=== PATIENT | female | born 1990 | race Caucasian/White ===

== ENCOUNTER → 2017-07-06 08:16 | Outpatient (CLI) | payer MEDICAID, SELFPAY ==
--- NOTE | 2017-07-06 08:17 | XR_ITS ---
XR foot wt bearing RT 3V HISTORY: Right foot pain, old injury ORDERING PHYSICIAN: Alma Benson DPM PATIENT AGE: 26 years COMPARISON: None FINDINGS: No fracture or dislocation. No lytic or blastic change. There is normal mineralization.. The joint spaces are well-preserved. No significant degenerative/arthritic changes. No erosive changes evident. IMPRESSION: Negative, no acute finding
--- NOTE | 2017-07-06 08:17 | XR_ITS ---
XR foot wt bearing LT 3V HISTORY: Foot pain ORDERING PHYSICIAN: Alma Benson DPM PATIENT AGE: 26 years COMPARISON: None FINDINGS: No fracture or dislocation. No lytic or blastic change. There is normal mineralization.. The joint spaces are well-preserved. No significant degenerative/arthritic changes. No erosive changes evident. IMPRESSION: Negative, no acute finding
--- NOTE | 2017-07-06 08:17 | XR_ITS ---
XR ankle wt bearing LT min 3V HISTORY: Pain ORDERING PHYSICIAN: Alma Benson DPM PATIENT AGE: 26 years COMPARISON: None FINDINGS: No fracture or dislocation. No lytic or blastic change. There is normal mineralization.. The joint spaces are well-preserved. No significant degenerative/arthritic changes. No erosive changes evident. IMPRESSION: Negative, no acute finding
--- NOTE | 2017-07-06 08:17 | XR_ITS ---
Right Weightbearing Ankle 3 views. HISTORY: Right ankle pain ORDERING PHYSICIAN: Alma Benson DPM PATIENT AGE: 26 years COMPARISON: None FINDINGS: No fracture or dislocation. No lytic or blastic change. There is normal mineralization.. The joint spaces are well-preserved. No significant degenerative/arthritic changes. No erosive changes evident. IMPRESSION: Negative ankle, no acute finding
== END ==
PROVIDERS: Visit Provider Podiatrist
DX: M21.371 Foot drop, right foot (principal)
CPT/HCPCS: 73610; 73630

== ENCOUNTER → 2017-09-28 13:30 | Outpatient (CLI) | payer MEDICAID, SELFPAY ==
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
== END ==
PROVIDERS: PCP Internal Medicine Adolescent Medicine; Visit Provider Internal Medicine Adolescent Medicine
DX: G89.11 Acute pain due to trauma (principal)
CPT/HCPCS: 72110

== ENCOUNTER 2017-10-27 15:30 | Outpatient (RCR) | payer MEDICAID, SELFPAY ==
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
== END 2017-10-27 15:31 | disposition home or self-care (01) ==
LOC: PT 15:30
PROVIDERS: Family Provider Internal Medicine Adolescent Medicine; PCP Internal Medicine Adolescent Medicine; Visit Provider Internal Medicine Adolescent Medicine
DX: M54.32 Sciatica, left side (principal)
CPT/HCPCS: 97010; 97014; 97033; 97035; 97110; 97140; 97163; G0283

== ENCOUNTER → 2018-01-31 16:13 | Outpatient (CLI) | payer MEDICAID, SELFPAY ==
--- NOTE | 2018-01-31 16:16 | XR_ITS ---
XR chest 2V HISTORY: ITS.REASON: COUGH ORDERING PHYSICIAN: Andres Obrien MD PATIENT AGE: 27 years COMPARISON: 01/29/2012 FINDINGS: The cardiomediastinal silhouette and pulmonary vascularity are within normal limits. The lungs are clear without infiltrates, suspicious nodules, or pleural effusions. Postsurgical changes of the lower thoracic and lumbar spine with a bone plate on the left at T11-T12. The inferior aspect of the bone plate is not visible on the frontal view.. IMPRESSION: No change with no acute finding
== END ==
PROVIDERS: PCP Internal Medicine Adolescent Medicine; Visit Provider Internal Medicine Adolescent Medicine
DX: R05 Cough (principal)
CPT/HCPCS: 71046

== ENCOUNTER 2019-07-26 14:11 | Emergency (ER) | payer OTHER, SELFPAY ==
[2019-07-26 14:20] VITALS: BP 156/78; PULSE 95; RESP 18; TEMP 37.2; O2SAT 96; BMI 28.3
[2019-07-26 14:37] LABS: Hematocrit 37.5 % (37.0-47.0); Mean Corpuscular Volume 91.5 fl (81-99); White Blood Count 11.1 K/mm3 (4.8-10.8)
[2019-07-26 14:38] LABS: Basophils # 0.1 K/mm3 (0-0.2); Basophils % 0.6 % (0.1-2.0); Eosinophils # 0.3 K/mm3 (0.0-0.4); Eosinophils % 2.7 % (0.1-12.0); Lymphocytes # 3.1 K/mm3 (0.7-4.5); Lymphocytes % 27.5 % (10-50); Mean Corpuscular HGB Conc 31.9 g/dL (31.8-35.4); Mean Corpuscular Hemoglobin 29.2 pg (27.0-31.2); Mean Platelet Volume 8.6 fl (7.4-10.4); Monocytes # 0.5 K/mm3 (0.1-1.0); Monocytes % 4.5 % (1.7-9.3); Neutrophils # 7.2 K/mm3 (1.8-7.8); Neutrophils % 64.7 % (37.0-80.0); Platelet Count 342 K/mm3 (142-424); Red Cell Distribution Width 15.1 % (11.5-17.5)
--- NOTE | 2019-07-26 14:56 | HMH.COUGH ---
Cough Clinic HPI - History of Present Illness Complaint:: Fever, headache, chills and body aches HPI:: 28-year-old female who smokes 2 packs a day with 1 week of fever T-max 101 this is defervesced over the past few days, body aches, fatigue, headache. Denies cough or shortness of breath. Does complain of sore throat. No nausea or vomiting or diarrhea. has similar symptoms. Children appear to be okay. Has remote contact to coronavirus cases through a coworker at [employer] [facility]. Of note her has similar symptoms. This is been more predominant GI symptoms. Neither have significant respiratory symptoms. Both are seeing improvement. Onset (ago): day(s) Severity: moderate Home Medications: Home Medications Medication Instructions Recorded Confirmed Type cetirizine 10 mg tablet 10 mg PO DAILY 30 Days #30 07/06/17 07/26/19 History omeprazole 40 mg capsule,delayed 40 mg PO DAILY 30 Days #30 07/06/17 07/26/19 History release acetaminophen 300 mg-codeine 30 mg 1 tab PO TID PRN 05/10/19 07/26/19 History tablet paroxetine HCl 40 mg tablet 40 mg PO DAILY 06/22/19 07/26/19 History Loratadine [Allergy Relief] 10 mg PO DAILY 07/26/19 07/26/19 History Allergies/Adverse Reactions: Allergies Allergy/AdvReac Type Severity Reaction Status Date / Time doxycycline [DOXYCYCLINE] Allergy Unknown UNKNOWN Verified 07/26/19 14:19 naproxen [From NAPROSYN] Allergy Unknown DIFFICULTY Verified 07/26/19 14:19 BREATHING Cough Clinic Triage - Symptoms Fever History: Yes Chills: Yes Myalgia: Yes Nasal Drainage: No Sore Throat: No Productive Cough: No Non-productive Cough: No Ear or Sinus Pain: No Joint Pain: No Chest Pain: Yes Rash: No Shortness of Breath: Yes Nausea or Vomitting: Yes Headache: Yes Abdominal Pain: No Diarrhea: No - Exposure History Foreign Travel: No Direct Contact with COVID-19 Patient: No - Risk Factors Greater than 60 Years Old: No COPD: No Diabetes: No Heart Disease: No Home Oxygen Use: No Chronic Renal Disease: No Chronic Liver Disease: No Neurologic/Neurodevelopmental/intellectual disability: No Other Chronic Diseases: No If Female, currently : No Current Smoker: Yes Former Smoker: No Cough Clinic History I have reviewed the patient's past medical history: Yes Medical History: Reports:: Asthma, Depression Denies:: Anxiety, Cancer, Chronic Obstructive Pulmonary Disease (COPD), Diabetes Mellitus Type 1, Diabetes Mellitus Type 2, Hyperlipidemia, Hypertension, Myocardial Infarction Other Surgeries: Yes: Tubal Ligation, Other Amputation: No Fractures: No Comment: Back surgery 2009 - Social History Smoking Status: Current every day smoker Tobacco Type: cigarettes # Packs/Day (cigarettes): 1 Alcohol Intake: never Alcohol Intake Frequency:: other Substance Use Type: denies use Occupational Status: employed Housing: house Household Members: family - Psychiatric History Pschychiatric History:: Reports:: Depression Denies:: Anxiety Family Hx:: Hyperlipidemia, Diabetes, Hypertension ROS Obtained: Yes Systems reviewed as appropriate & no additional complaints Cough Clinic Exam - General General appearance: alert, in no apparent distress - Head Head exam: atraumatic, normocephalic, normal inspection - Eye Eye exam: Present: normal appearance, PERRL, EOMI - ENT ENT exam: Present: normal exam, normal oropharynx, mucous membranes moist, normal external ear exam - Neck Neck exam: Present: normal inspection, full ROM, trachea midline. Absent: meningismus, lymphadenopathy - Respiratory Respiratory exam: Present: normal lung sounds bilaterally. Absent: respiratory distress - Cardiovascular Cardiovascular exam: Present: regular rate, normal rhythm. Absent: JVD - Abdominal Exam Abdominal exam: Present: soft, distention - Neurological Exam Neurological exam: Present: alert, oriented X3 Cough Clinic MDM Vital Signs: 07/26/19 14:20 07/26/19 16:01
--- NOTE | 2019-07-26 15:18 | XR_ITS ---
PROCEDURE: XR CHEST PORTABLE CLINICAL HISTORY: cough/respiratory symptoms Smoker COMPARISON: CXR2V XR chest 2V from 01/31/2018 FINDINGS: The cardiomediastinal silhouette and pulmonary vascularity are within normal limits. The lungs are clear without infiltrates, suspicious nodules, or pleural effusions. Prior surgery of the thoracolumbar spine with a metallic prosthesis present IMPRESSION: No change with no acute finding Dictated by: Edinson Arcos MD 07/26/2019 15:38 Electronically signed by Edinson Arcos MD in [place] 07/26/2019 15:38
[2019-07-26 16:01] VITALS: BP 156/78; PULSE 95; RESP 18; TEMP 37.2; O2SAT 96
== END 2019-07-26 16:01 | disposition home or self-care (01) ==
PROVIDERS: Emergency Provider Internal Medicine Adolescent Medicine; PCP Internal Medicine Adolescent Medicine
DX: K52.9 Noninfective gastroenteritis and colitis, unspecified (principal); J45.909 Unspecified asthma, uncomplicated; F33.1 Major depressive disorder, recurrent, moderate; F17.210 Nicotine dependence, cigarettes, uncomplicated; Z79.899 Other long term (current) drug therapy
CPT/HCPCS: 36415; 71045; 85025; 87275; 87276; 99201; 99213

== ENCOUNTER 2020-06-26 17:44 | Emergency (ER) | payer BC, SELFPAY ==
[2020-06-26 17:50] VITALS: BP 133/79; PULSE 87; RESP 18; TEMP 36.9; O2SAT 98; BMI 30.4
--- NOTE | 2020-06-26 18:11 | HMH.EDUTC ---
[facility] [place] Disposition Clinical Impression: Bilateral otitis media, Sinusitis Disposition: Home, Self-Care Condition on Discharge: Good Instructions: DI for Sinusitis Additional Instructions: COVID test is pending Prescriptions: Amoxicillin [Amoxicillin 875MG Tab] 875 mg PO Q12H #20 tab Transmission Status: Pending to [facility] predniSONE [Prednisone 20mg Tab] 20 mg PO BID 5 Days #10 tab Transmission Status: Pending to [facility] Referrals: Andres Obrien MD [Primary Care Provider] - Time of Disposition: 18:14 Medical Decision Making - [place] Inquiry Pt receiving controlled substance: No Vital Signs: 06/26/20 17:50 Temperature 98.5 F Temperature Source Oral Pulse Rate [Right Brachial] 87 Respiratory Rate 18 Blood Pressure [Right Arm] 133/79 Blood Pressure Mean [Right Arm] 97 Blood Pressure Source [Right Arm] Automatic Cuff Blood Pressure Position [Right Arm] Sitting 02 Sat by Pulse Oximetry 98 Oxygen Delivery Method Room Air - Lab Data Lab results reviewed: Yes: I reviewed the patient's lab results. Orders (Tests/Meds): ORDERS Category Date Time Status Covid-19 Nasal PCR ([facility]) Routine Lab 06/26/20 18:00 Received [facility] [place] HPI - General Stated complaint: diff breathinbg Time Seen by Provider: 06/26/20 18:11 Mode of Arrival: Ambulatory Source of Information: Patient Limitations: No Limitations Description of Symptoms (Recalled from Triage Doc. by RN): PATIENT C/O LUNG PAIN, BODY ACHES, FEVER, LACK OF TASTE, AND HEADACHE SINCE YESTERDAY HEENT Symptoms (Recalled from RN notes): No Resp Symptoms (Recalled from RN notes): No Skin Symptoms (Recalled from RN notes): No MS Symptoms (Recalled from RN notes): No Functional Status (Recalled from RN notes): WNL - History of Present Illness Provider Complaint: Headache, ear pain, sinus pain, altered taste, pain in lungs X 2 days. No fever. No vomiting or diarrhea. No loss of taste or smell. She does smoke. Has had body aches. Lungs burn with inspiration but no cough. Onset (ago): day(s) (2) Location: chest Relieving factors: none Exacerbating factors: none Associated symptoms: denies other symptoms Treatments prior to arrival: none - Related Data Home Medications Medication Instructions Recorded Confirmed cetirizine 10 mg tablet 10 mg PO DAILY 30 Days #30 07/06/17 07/26/19 omeprazole 40 mg capsule,delayed 40 mg PO DAILY 30 Days #30 07/06/17 07/26/19 release acetaminophen 300 mg-codeine 30 mg 1 tab PO TID PRN 05/10/19 07/26/19 tablet paroxetine HCl 40 mg tablet 40 mg PO DAILY 06/22/19 07/26/19 Loratadine [Allergy Relief] 10 mg PO DAILY 07/26/19 07/26/19 Previous Rx's Medication Instructions Recorded Amoxicillin [Amoxicillin 875MG 875 mg PO Q12H #20 tab 06/26/20 Tab] predniSONE [Prednisone 20mg 20 mg PO BID 5 Days #10 tab 06/26/20 Tab] Allergies Allergy/AdvReac Type Severity Reaction Status Date / Time doxycycline [DOXYCYCLINE] Allergy Unknown UNKNOWN Verified 07/26/19 14:19 naproxen [From NAPROSYN] Allergy Unknown DIFFICULTY Verified 07/26/19 14:19 BREATHING - Worker's Comp Is this a Worker's Comp case?: No [facility] History - Hepatitis A Screen Drug use history?: No High risk sexual behaviors?: No History of sexually transmitted infection?: No Currently employed?: No Childcare worker?: No Do you have indoor plumbing?: Yes Do you have electricity?: Yes Attestation statement:: This patient has been screened for Hepatitis A risk factors. I have reviewed the patient's past medical history: Yes Medical History: Reports:: Asthma, Depression Denies:: Anxiety, Cancer, Chronic Obstructive Pulmonary Disease (COPD), Diabetes Mellitus Type 1, Diabetes Mellitus Type 2, Hyperlipidemia, Hypertension, Myocardial Infarction Other Surgeries: Yes: Tubal Ligation, Other Amputation: No Fractures: No Comment: Back surgery 2010 - Social History Smoking Status: Nev
[2020-06-26 18:14] LABS: UTC Influenza A Antigen Negative (Negative); UTC Influenza B Antigen Negative (Negative)
[2020-06-26 18:16] VITALS: BP 133/79; PULSE 87; RESP 18; TEMP 36.9; O2SAT 98
== END 2020-06-26 18:19 | disposition home or self-care (01) ==
PROVIDERS: Emergency Provider Physician Assistant; PCP Internal Medicine Adolescent Medicine
DX: Z20.822 Contact with and (suspected) exposure to COVID-19 (principal); J01.90 Acute sinusitis, unspecified; H66.93 Otitis media, unspecified, bilateral; J45.909 Unspecified asthma, uncomplicated; F33.1 Major depressive disorder, recurrent, moderate; Z79.899 Other long term (current) drug therapy
CPT/HCPCS: 87804; 99202; G0463; U0003

== ENCOUNTER 2020-07-26 20:28 | Emergency (ER) | payer BC, SELFPAY ==
[2020-07-26 20:42] VITALS: BP 138/84; PULSE 89; RESP 20; TEMP 36.8; O2SAT 100; BMI 22.9
--- NOTE | 2020-07-26 21:01 | ECG_ITS ---
APPROVED REPORT Exam: Resting ECG HR:83 bpm ECG Measurements Heart Rate 83 AXES AL 112 P 29 QRSd 84 QRS 50 QT 380 T 33 QTc 446 Conclusion Normal sinus rhythm Normal ECG Electronically signed by : Andres Obrien, 07/27/2020 19:01:53
--- NOTE | 2020-07-26 21:01 | XR_ITS ---
PROCEDURE: XR CHEST 2V CLINICAL HISTORY: chest pain Chest pain and smoker COMPARISON: DX CXR2V XR chest 2V from 01/31/2018 CR XR CHEST PORTABLE from 07/26/2019 FINDINGS: The cardiomediastinal silhouette and pulmonary vascularity are within normal limits. The lungs are clear without infiltrates, suspicious nodules, or pleural effusions. Lateral bone plate with stabilization screws present at T11 and L1. IMPRESSION: No change with no acute finding Dictated by: Edinson Arcos MD 07/27/2020 05:46 Edinson Arcos MD in [place] 07/27/2020 05:46
[2020-07-26 21:11] LABS: Basophils # 0.1 K/mm3 (0-0.2); Basophils % 0.4 % (0.1-2.0); Eosinophils # 0.4 K/mm3 (0.0-0.4); Hematocrit 38.2 % (37.0-47.0); Hemoglobin 12.5 g/dL (12.2-16.2); Lymphocytes # 5.2 K/mm3 (0.7-4.5); Lymphocytes % 26.9 % (10-50); Mean Corpuscular HGB Conc 32.8 g/dL (31.8-35.4); Mean Corpuscular Hemoglobin 29.4 pg (27.0-31.2); Mean Corpuscular Volume 89.5 fl (81-99); Mean Platelet Volume 8.3 fl (7.4-10.4); Monocytes # 0.6 K/mm3 (0.1-1.0); Monocytes % 3.2 % (1.7-9.3); Neutrophils % 67.4 % (37.0-80.0); Platelet Count 344 K/mm3 (142-424); Red Blood Count 4.27 M/mm3 (4.20-5.40); Red Cell Distribution Width 14.1 % (11.5-17.5); White Blood Count 19.3 K/mm3 (4.8-10.8)
[2020-07-26 21:13] LABS: MANUAL DIFFERENTIAL MANUAL DIFFERENTIAL (MANUAL DIFF)
[2020-07-26 21:16] LABS: Alanine Aminotransferase 18 U/L (12-78); Albumin Level 4.6 g/dl (3.5-5.0); Alkaline Phosphatase 96 U/L (38-126); Anion Gap 11.3 mEq/L (5-15); Aspartate Amino Transferase 31 U/L (14-36); Bilirubin,Direct 0.1 mg/dl (0.0-0.4); Bilirubin,Indirect 0.2 mg/dL (0.0-0.9); Bilirubin,Total 0.3 mg/dl (0.2-1.3); Bilirubin,Unconjugated 0.2 mg/dL (0.0-1.1); Blood Urea Nitrogen 12 mg/dl (7-17); Calcium 9.4 mg/dl (8.4-10.2); Carbon Dioxide 25 mmol/L (22.0-30.0); Chloride 105 mmol/L (98-107); Creatinine Clearance Estimated 137 mL/min (50-200); Estimated Glomerular Filt Rate 118 ml/min (>60); GFR (African American) 143 ML/MIN (>60); Glucose 90 mg/dl (74-100); Potassium 3.3 mmoL/L (3.5-5.1); Sodium 138 mmol/L (136-145); Total Protein,Serum 7.4 g/dl (6.3-8.2)
--- NOTE | 2020-07-26 21:29 | CT_ITS ---
PROCEDURE: CT ANGIO CHEST CLINCIAL INDICATION: fall Blunt trauma with injury and pain, contusion/abrasion or hematoma following injury, chest pain, shortness of air COMPARISON: CT SPLUMBWO CT lumbar spine wo con from 09/12/2017 CR XR CHEST 2V from 07/26/2020 TECHNIQUE: IV Contrast: 70ML Isovue 370 Axial images obtained with sagittal and coronal reformats. All CT scans at the facility use one or more dose reduction, viz: automated exposure control, ma/kV adjustment per patient size (including targeted exams where dose is matched to indication, i.e. head), or iterative reconstruction technique. FINDINGS: HEART AND MEDIASTINAL STRUCTURES: No evidence of pulmonary embolus, aortic aneurysm, or aortic dissection.. There is some faint increased density in the anterior mediastinum which may be related to residual thymic tissue. LUNGS AND PLEURAL SPACES: There is a focal area of lucency in the right upper lobe anterior laterally with associated calcific density. In the left lower lobe there is a peripheral parenchymal opacity measuring 11 by 7 mm. Bony structures: There is an associated fracture of the left 10th rib just deep to this parenchymal opacity with hypoplastic changes of the left 10th rib. This may be a bone graft donor site. Please correlate with patient's surgical history. Lateral stabilization device is present on the left incompletely imaged at T11 and T12. UPPER ABDOMEN: Borderline splenomegaly ADDITIONAL FINDINGS: No other significant abnormalities. IMPRESSION: 1. No evidence of pulmonary embolus. 2. 11 mm subpleural opacity in the left lower lobe. This is nonspecific and may be due to an area of neoplasm, infection, or scarring. This is just deep to what appears to represent a bone graft donor site of the left 10th rib. Please correlate with patient's history. Recommend [address] follow-up. Dictated by: Edinson Arcos MD 07/27/2020 09:39 Edinson Arcos MD in [place] 07/27/2020 09:39
--- NOTE | 2020-07-26 21:29 | HMH.EDCP ---
ED Disposition Clinical Impression: Atypical chest pain, Abnormal CT of the chest Headache Qualifiers: Headache type: unspecified Headache chronicity pattern: acute headache Intractability: not intractable Qualified Code(s): R51.9 - Headache, unspecified Leukocytosis Qualifiers: Leukocytosis type: unspecified Qualified Code(s): D72.829 - Elevated white blood cell count, unspecified Disposition: Home, Self-Care Condition on Discharge: Good Instructions: DI for Atypical Chest Pain Additional Instructions: call pcp in am Referrals: Andres Obrien MD [Primary Care Provider] - - Critical Care Critical Care Time: No Attestation: On 07/26/20, the high probability of a clinically significant, sudden or life threatening deterioration of the following system(s) required my full and direct attention, intervention and personal management. The time I documented below is in addition to time spent performing reported procedures but includes the following listed in this critical care notation. Medical Decision Making - Medical Records Medical records reviewed: Yes: I reviewed the patient's medical records. - [place] Inquiry Pt receiving controlled substance: No Vital Signs: 07/26/20 20:42 07/26/20 21:30 07/26/20 22:00 Temperature 98.3 F Temperature Source Oral Pulse Rate 83 73 Pulse Rate [Right] 89 Respiratory Rate 20 18 Blood Pressure 138/87 99/54 L Blood Pressure [Right Arm] 138/84 Blood Pressure Mean [Right Arm] 102 Blood Pressure Source [Right Arm] Automatic Cuff Blood Pressure Position [Right Arm] Supine 02 Sat by Pulse Oximetry 100 100 97 Oxygen Delivery Method Room Air Room Air - Lab Data Lab results reviewed: Yes: I reviewed the patient's lab results. Lab Results 07/26/20 20:30: WBC 19.3 H, RBC 4.27, Hgb 12.5, Hct 38.2, MCV 89.5, MCH 29.4, MCHC 32.8, RDW 14.1, Plt Count 344, MPV 8.3, Neut % (Auto) 67.4, Lymph % (Auto) 26.9, [place] % (Auto) 3.2, Eos % (Auto) 2.0, Baso % (Auto) 0.4, Neut # (Auto) 13.0 H, Lymph # (Auto) 5.2 H, [place] # (Auto) 0.6, Eos # (Auto) 0.4, Baso # (Auto) 0.1, Total Counted 100, Neutrophils % (Manual) 65, Lymphocytes % (Manual) 27, Monocytes % (Manual) 5, Eosinophils % (Manual) 3, Platelet Estimate Normal, RBC Morphology Normal, ESR 16 07/26/20 20:30: Sodium 138, Potassium 3.3 L, Chloride 105, Carbon Dioxide 25, Anion Gap 11.3, BUN 12, Creatinine 0.60, Estimated Creat Clear 137, Estimated GFR 118, Est GFR ( Amer) 143, Glucose 90, Calcium 9.4, Total Bilirubin 0.3, Direct Bilirubin 0.1, Conjugated Bilirubin 0.0, Indirect Bilirubin 0.2, Unconjugated Bilirubin 0.2, AST 31, ALT 18, Alkaline Phosphatase 96, Troponin I < 0.01, C-Reactive Protein 2.0, Total Protein 7.4, Albumin 4.6, Procalcitonin < 0.030 07/27/20 00:15: Troponin I < 0.01 Result diagrams: 07/26/20 20:30 07/26/20 20:30 Orders (Tests/Meds): ED MEDICATIONS Generic Name Dose Route Start Last Admin Trade Name Freq PRN Reason Stop Dose Admin Sodium Chloride 1,000 mls @ 999 mls/hr 07/26/20 21:15 07/26/20 21:09 Sod Chlor 0.9% 1000ml Bag IV 07/26/20 22:15 999 mls/hr .Q1H1M FAUSTO Administration Discontinued Medications Generic Name Dose Route Start Last Admin Trade Name Freq PRN Reason Stop Dose Admin Aspirin 324 mg 07/26/20 21:01 07/26/20 21:08 Aspirin 81mg Chewable Tablet PO 07/26/20 21:02 324 mg ONCE ONE Administration Diphenhydramine HCl 50 mg 07/26/20 21:02 07/26/20 21:09 Diphenhydramine 50mg/Ml Vial IV 07/26/20 21:03 50 mg ONCE ONE Administration Iopamidol 70 ml 07/26/20 22:24 07/26/20 22:26 Iopamidol-370 (76%);100ml Bottle IV 07/26/20 22:25 70 ml ONCE ONE Administration Ketorolac Tromethamine 30 mg 07/26/20 21:02 07/26/20 21:10 Ketorolac 30mg/Ml Vial IV 07/26/20 21:03 30 mg ONCE ONE Administration Methylprednisolone Sodium Succinate 125 mg 07/26/20 21:02 07/26/20 21:08 Methylprednisolone Sod Succ 125mg Vial IV 07/26/20 21:03 12
[2020-07-26 21:30] VITALS: BP 138/87; PULSE 83; RESP 18; O2SAT 100
[2020-07-26 21:36] LABS: Procalcitonin < 0.030 ng/mL (0.0-2.0); Troponin I < 0.01 ng/ml (0.00-0.034)
[2020-07-26 21:48] LABS: Eosinophils % 3 % (0-3); Lymphocytes % 27 % (10-50); Monocytes % 5 % (2-9); Neutrophils % 65 % (42-76); Platelet Estimate Normal; RBC Morphology Normal; Total Cells Counted 100
[2020-07-26 21:51] LABS: Erythrocyte Sedimentation Rate 16 mm/hr (0-20)
[2020-07-26 22:00] VITALS: BP 99/54; PULSE 73; O2SAT 97
[2020-07-26 23:00] VITALS: BP 117/79; PULSE 71; O2SAT 100
[2020-07-26 23:30] VITALS: BP 135/78; PULSE 74; O2SAT 96
[2020-07-27] VITALS: BP 109/57; PULSE 74; O2SAT 99
[2020-07-27 00:30] VITALS: BP 112/61; PULSE 71; O2SAT 97
[2020-07-27 00:48] LABS: Troponin I < 0.01 ng/ml (0.00-0.034)
[2020-07-27 01:00] VITALS: BP 103/59; PULSE 71; O2SAT 97
[2020-07-27 01:30] VITALS: BP 123/79; PULSE 72; O2SAT 95
[2020-07-27 01:43] VITALS: BP 123/79; PULSE 72; RESP 16; TEMP 36.7; O2SAT 95
== END 2020-07-27 01:47 | disposition home or self-care (01) ==
PROVIDERS: Emergency Provider Emergency Medicine; PCP Internal Medicine Adolescent Medicine
DX: R07.89 Other chest pain (principal); R51.9 Headache, unspecified; D72.829 Elevated white blood cell count, unspecified; J45.909 Unspecified asthma, uncomplicated; F17.210 Nicotine dependence, cigarettes, uncomplicated; Z79.899 Other long term (current) drug therapy
CPT/HCPCS: 36415; 71046; 71275; 80048; 80076; 84145; 84484; 85007; 85025; 85651; 86140; 93005; 96375; 99282; Q9967

== ENCOUNTER → 2021-01-12 13:54 | Outpatient (CLI) | payer BC, SELFPAY ==
[2021-01-12 14:31] LABS: Basophils # 0.1 K/mm3 (0-0.2); Basophils % 0.6 % (0.1-2.0); Eosinophils # 0.3 K/mm3 (0.0-0.4); Eosinophils % 3.1 % (0.1-12.0); Hematocrit 40.2 % (37.0-47.0); Hemoglobin 13.2 g/dL (12.2-16.2); Lymphocytes # 3.1 K/mm3 (0.7-4.5); Lymphocytes % 28.8 % (10-50); Mean Corpuscular HGB Conc 32.9 g/dL (31.8-35.4); Mean Corpuscular Hemoglobin 29.6 pg (27.0-31.2); Mean Platelet Volume 9.3 fl (7.4-10.4); Monocytes # 0.4 K/mm3 (0.1-1.0); Monocytes % 3.9 % (1.7-9.3); Neutrophils # 6.8 K/mm3 (1.8-7.8); Neutrophils % 63.7 % (37.0-80.0); Platelet Count 370 K/mm3 (142-424); Red Blood Count 4.46 M/mm3 (4.20-5.40); Red Cell Distribution Width 15.8 % (11.5-17.5); White Blood Count 10.6 K/mm3 (4.8-10.8)
[2021-01-12 15:14] LABS: Chloride 105 mmol/L (98-107); Potassium 4.7 mmoL/L (3.5-5.1); Sodium 139 mmol/L (136-145)
[2021-01-12 15:17] LABS: Alanine Aminotransferase 16 U/L (12-78); Albumin Level 4.3 g/dl (3.5-5.0); Albumin/Globulin Ratio 1.5 (1.1-1.8); Alkaline Phosphatase 88 U/L (38-126); Anion Gap 10.7 mEq/L (5-15); Aspartate Amino Transferase 26 U/L (14-36); Bilirubin,Total 0.2 mg/dl (0.2-1.3); Blood Urea Nitrogen 10 mg/dl (7-17); Calcium 10.2 mg/dl (8.4-10.2); Carbon Dioxide 28 mmol/L (22.0-30.0); Estimated Glomerular Filt Rate 117 ml/min (>60); GFR (African American) 142 ML/MIN (>60); Globulin 2.9 g/dL (1.3-3.2); Glucose 94 mg/dl (74-100); Lipase 59 U/L (23-300); Total Protein,Serum 7.2 g/dl (6.3-8.2)
== END ==
PROVIDERS: Visit Provider Internal Medicine Adolescent Medicine
DX: R10.84 Generalized abdominal pain (principal)
CPT/HCPCS: 36415; 80053; 83690; 85025

== ENCOUNTER 2021-03-08 18:43 | Emergency (ER) | payer BC, SELFPAY ==
[2021-03-08 19:26] VITALS: BP 121/81; PULSE 97; RESP 20; TEMP 37.1; O2SAT 99; BMI 29.9
--- NOTE | 2021-03-08 20:03 | HMH.EDUTC ---
[facility] Disposition Clinical Impression: Strep throat Disposition: Home, Self-Care Condition on Discharge: Good Instructions: DI for Strep Throat, Strep Throat Additional Instructions: Drink plenty of fluids. Take tylenol or ibuprofen for pain or fever. Take the medications as directed. Follow up with your regular doctor. GO TO THE ER FOR ANY WORSENING SYMPTOMS Throw your tooth brush away and get a new one. Prescriptions: Ondansetron [Zofran 4mg ODT] 4 mg PO Q8HP PRN #20 tab PRN Reason: Nausea Transmission Status: Pending to [facility] Amoxicillin [Amoxicillin 500mg Tab] 500 mg PO TID 10 Days #30 tab Transmission Status: Pending to [facility] Referrals: Andres Obrien MD [Primary Care Provider] - Forms: Work/School Release Time of Disposition: 20:31 Medical Decision Making - Medical Records Medical records reviewed: No: I reviewed the patient's medical records. - [place] Inquiry Pt receiving controlled substance: No Vital Signs: 03/08/21 19:26 Temperature 98.8 F Temperature Source Oral Pulse Rate [Left] 97 H Respiratory Rate 20 Blood Pressure [Right Arm] 121/81 Blood Pressure Mean [Right Arm] 94 02 Sat by Pulse Oximetry 99 - Lab Data Lab results reviewed: Yes: I reviewed the patient's lab results. Lab Results 03/08/21 20:19: Urine Color Dark yellow, Urine Appearance Cloudy, Urine pH 5.5, Ur Specific Leroy > 1.030 H, Urine Protein Trace, Urine Glucose (UA) Negative, Urine Ketones Negative, Urine Blood Trace, Urine Nitrate Negative, Urine Bilirubin 1+ A, Urine Urobilinogen 0.2, Ur Leukocyte Esterase Negative Orders (Tests/Meds): ORDERS Category Date Time Status Urine Culture Stat Micro 03/08/21 20:16 Ordered [facility] HPI - General Stated complaint: abd pain Time Seen by Provider: 03/08/21 20:03 Mode of Arrival: Ambulatory Source of Information: Patient Limitations: No Limitations Description of Symptoms (Recalled from Triage Doc. by RN): pt c/o L sided abd pain. pt reports her stool is pale brown and floats. pt also c/o lightheadedness and fatigue. HEENT Symptoms (Recalled from RN notes): No Resp Symptoms (Recalled from RN notes): No Skin Symptoms (Recalled from RN notes): No MS Symptoms (Recalled from RN notes): No Functional Status (Recalled from RN notes): wnl - History of Present Illness Provider Complaint: She c/o feeling very tired and fatigued and having some chilling since yesterday. She also has had some abdominal cramping and soft stools. Her son currently has strep throat. She denies an actual sore throat, but she has had a scratchy sore throat at times. - Related Data Home Medications Medication Instructions Recorded Confirmed cetirizine 10 mg tablet 10 mg PO DAILY 30 Days #30 07/06/17 02/13/21 omeprazole 40 mg capsule,delayed 40 mg PO DAILY 30 Days #30 07/06/17 02/13/21 release paroxetine HCl 40 mg tablet 40 mg PO DAILY 06/22/19 02/13/21 Baclofen [Lioresal 10mg tablet] 10 mg PO QID PRN 07/27/20 02/13/21 inhalat.spacing dev,large mask See Rx Instructions .ROUTE 02/13/21 02/13/21 .MEDSUPPLY #1 each Previous Rx's Medication Instructions Recorded fluticasone propionate 50 1 spray INTRANASAL DAILY #16 g 02/13/21 mcg/actuation nasal spray,suspension Amoxicillin [Amoxicillin 500mg Tab] 500 mg PO TID 10 Days #30 tab 03/08/21 Ondansetron [Zofran 4mg ODT] 4 mg PO Q8HP PRN #20 tab 03/08/21 Allergies Allergy/AdvReac Type Severity Reaction Status Date / Time doxycycline [DOXYCYCLINE] Allergy Unknown UNKNOWN Verified 02/13/21 15:26 naproxen [From NAPROSYN] Allergy Unknown DIFFICULTY Verified 02/13/21 15:26 BREATHING - Worker's Comp Is this a Worker's Comp case?: No [facility] History - Hepatitis A Screen Drug use history?: No High risk sexual behaviors?: No History of sexually transmitted infection?: No Currently employed?: No Childcare worker?: No Do you have indoor plumbing?: Yes Do y
[2021-03-08 20:20] LABS: Apearance,Urine Cloudy (Clear); Color,Urine Dark Yellow (Yellow); Glucose,Urine (UA) Negative (Negative); PH,Urine 5.5 (5.0-8.5); Protein,Urine Trace (Negative); Specific Gravity, Urine > 1.030 (1.005-1.030)
[2021-03-08 20:21] LABS: Bilirubin,Urine 1+ (Negative); Blood, Urine Trace (Negative); Ketones,Urine Negative (Negative); UTC Leukocyte Esterase,Urine Negative (Negative); UTC Nitrate,Urine Negative (Negative); Urobilinogen,Urine 0.2 EU/dl (0.2)
[2021-03-08 20:34] VITALS: BP 121/81; PULSE 97; RESP 20; TEMP 37.1
== END 2021-03-08 20:41 | disposition home or self-care (01) ==
PROVIDERS: Emergency Provider Nurse Practitioner Family; PCP Internal Medicine Adolescent Medicine
DX: J02.0 Streptococcal pharyngitis (principal)
CPT/HCPCS: 81003; 87086; 99202; G0463

== ENCOUNTER → 2021-07-06 14:15 | Outpatient (CLI) | payer SELFPAY ==
--- NOTE | 2021-07-06 14:18 | MR_ITS ---
FINAL REPORT CLINICAL HISTORY: NEURALGIA. PRIOR HX BACK SURGERY 2009. LT SIDED LBP WITH LT HIP PAIN AND LEG PAIN, NUMBNESS AND TINGLING. SYMPTOMS X2.5WKS. NO INJURY OR TRAUMA. BURNING SENSATION DOWN LT LEG. 16ML PROHANCE GIVEN. FINDINGS: Multiplanar MR imaging of the lumbar spine was performed without and with contrast. There has been fusion from T11 through L1. On the sagittal T2-weighted images, disc degeneration is seen at the L3-4, L4-5, and L5-S1 levels. The vertebral alignment is normal. There is no evidence of fracture. The conus is seen at approximately the L1 level and has an unremarkable appearance. T11-12: Fusion. T12-L1: Fusion. L1-2: No significant canal stenosis or neuroforaminal narrowing is seen. L2-3: No significant canal stenosis or neural foraminal narrowing is seen. L3-4: An annular bulge is present. There is a small central disc protrusion. There is no significant canal stenosis. There is mild left neural foraminal narrowing. L4-5: An annular bulge is present. There is no significant canal stenosis. There is mild bilateral neural foraminal narrowing. L5-S1: An annular bulge is present. There is a right paracentral disc protrusion contacting the right S1 nerve root. There is no significant canal stenosis. There is mild bilateral neural foraminal narrowing. No abnormal contrast enhancement is identified. IMPRESSION: Multilevel mild degenerative disc disease and spondylosis with areas of neural foraminal narrowing as described. Disc protrusions at L3-4 and L5-S1. Postoperative changes from fusion from T11 through L1. Reviewed, Interpreted and Dictated by Rohit Storm III, MD Transcribed by Sarah Davies Authenticated by Rohit Storm III, MD on 07/06/2021 04:31:14 PM [facility]
== END ==
LOC: RAD 14:15
PROVIDERS: PCP Internal Medicine Adolescent Medicine; Visit Provider Internal Medicine Adolescent Medicine
DX: M79.2 Neuralgia and neuritis, unspecified (principal)
CPT/HCPCS: 72158; 76376; A9576

== ENCOUNTER 2022-01-27 21:51 | Emergency (ER) | payer BC, SELFPAY ==
[2022-01-27 21:53] VITALS: BP 100/56; PULSE 71; RESP 18; TEMP 36.5; O2SAT 100; BMI 26.6
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
[2022-01-27 22:56] VITALS: BP 102/60; PULSE 70; RESP 17; TEMP 36.7; O2SAT 100
== END 2022-01-27 23:11 | disposition home or self-care (01) ==
PROVIDERS: Emergency Provider Student in an Organized Health Care Education/Training Program; PCP Internal Medicine Adolescent Medicine
DX: M54.16 Radiculopathy, lumbar region
CPT/HCPCS: 99282

== ENCOUNTER 2022-06-10 22:12 | Emergency (ER) | payer MEDICAID, SELFPAY ==
[2022-06-10 22:14] VITALS: BP 142/79; PULSE 96; RESP 15; TEMP 36.7; O2SAT 96; BMI 25.2
--- NOTE | 2022-06-10 22:15 | ECG_ITS ---
APPROVED REPORT Exam: Resting ECG HR:89 bpm ECG Measurements Heart Rate 89 AXES DE 162 P 93 QRSd 81 QRS 48 QT 350 T 71 QTc 397 Conclusion SINUS RHYTHM MODERATE ST DEPRESSION [0.05+ mV ST DEPRESSION] ABNORMAL ECG UNCONFIRMED REPORT Electronically signed by : Andres Obrien MD 06/11/2022 11:46:44
--- NOTE | 2022-06-10 22:15 | XR_ITS ---
PROCEDURE INFORMATION: Exam: XR Chest Exam date and time: 06/10/2022 10:30 PM Age: 31 years old Clinical indication: Pain; Chest pressure; Additional info: Cp TECHNIQUE: Imaging protocol: Radiologic exam of the chest. Views: 2 views. COMPARISON: CR XR CHEST 2V 07/26/2020 9:04 PM FINDINGS: Lungs: Unremarkable. No consolidation. Pleural spaces: Unremarkable. No pleural effusion. No pneumothorax. Heart/Mediastinum: Unremarkable. No cardiomegaly. Bones/joints: Orthopedic hardware again noted in at the thoracolumbar junction. Bones are otherwise unremarkable. IMPRESSION: No active disease
--- NOTE | 2022-06-10 22:19 | CT_ITS ---
PROCEDURE INFORMATION: Exam: CTA Chest With Contrast Exam date and time: 06/10/2022 10:47 PM Age: 31 years old Clinical indication: Pain; Chest pressure; Additional info: Chest pain TECHNIQUE: Imaging protocol: Computed tomographic angiography of the chest with contrast. 3D rendering (Not supervised by radiologist): MIP and/or 3D reconstructed images were created by the technologist. Radiation optimization: All CT scans at this facility use at least one of these dose optimization techniques: automated exposure control; mA and/or kV adjustment per patient size (includes targeted exams where dose is matched to clinical indication); or iterative reconstruction. Contrast material: ISOVUE; Contrast volume: 70 ml; Contrast route: INTRAVENOUS (IV); REPORTING DATA: Count of CT and Cardiac NM exams in prior 12 months: This patient has received 0 known CTs and 0 known cardiac nuclear medicine studies in the 12 months prior to the current study. COMPARISON: CT ANGIO CHEST 07/26/2020 10:14 PM FINDINGS: Pulmonary arteries: Normal. No pulmonary emboli. Aorta: Unremarkable. No aortic aneurysm. No aortic dissection. Lungs: There is stable subpleural scarring in the posterior left lung base. Lungs are otherwise clear. Pleural spaces: Unremarkable. No pneumothorax. No pleural effusion. Heart: Unremarkable. No cardiomegaly. No pericardial effusion. Lymph nodes: Unremarkable. No enlarged lymph nodes. Bones/joints: Orthopedic hardware partially visualized in the lower spine. Soft tissues: Unremarkable. IMPRESSION: No acute abnormality
[2022-06-10 22:30] LABS: Chloride 104 mmol/L (98-107); Potassium 3.5 mmoL/L (3.5-5.1); Sodium 136 mmol/L (136-145)
[2022-06-10 22:32] LABS: Basophils # 0.1 K/mm3 (0-0.2); Basophils % 0.8 % (0.1-2.0); Eosinophils # 0.2 K/mm3 (0.0-0.4); Eosinophils % 1.7 % (0.1-12.0); Hematocrit 36.3 % (37.0-47.0); Hemoglobin 12.2 g/dL (12.2-16.2); Lymphocytes # 4.5 K/mm3 (0.7-4.5); Mean Corpuscular HGB Conc 33.7 g/dL (31.8-35.4); Mean Corpuscular Volume 88.9 fl (81-99); Mean Platelet Volume 8.4 fl (7.4-10.4); Monocytes # 0.5 K/mm3 (0.1-1.0); Monocytes % 3.7 % (1.7-9.3); Neutrophils % 62.7 % (37.0-80.0); Platelet Count 328 K/mm3 (142-424); Red Blood Count 4.08 M/mm3 (4.20-5.40); Red Cell Distribution Width 15.5 % (11.5-17.5); White Blood Count 14.4 K/mm3 (4.8-10.8)
[2022-06-10 22:33] LABS: Anion Gap 6.5 mEq/L (5-15); Blood Urea Nitrogen 10 mg/dl (7-17); Calcium 8.5 mg/dl (8.4-10.2); Carbon Dioxide 29 mmol/L (22.0-30.0); Creatinine Clearance Estimated 148 mL/min (50-200); Estimated Glomerular Filt Rate 117 ml/min (>60); GFR (African American) 141 ML/MIN (>60); Glucose 89 mg/dl (74-100)
[2022-06-10 22:46] LABS: Troponin I < 0.01 ng/ml (0.00-0.034)
--- NOTE | 2022-06-10 22:51 | HMH.EDCP ---
Discharge Plan Disposition Patient Disposition: Home, Self-Care Chief Complaint: Chest Pain Prescriptions Prescriptions: No Action omeprazole 40 mg capsule,delayed release(DR/EC) 40 mg PO DAILY 30 Days Qty: 30 Label Comments: cetirizine 10 mg tablet 10 mg PO DAILY 30 Days Qty: 30 Label Comments: paroxetine HCl 40 mg tablet 40 mg PO DAILY (DME) OptiChamber Sharmila Lg Mask Spacer See Rx Instructions .ROUTE .MEDSUPPLY Qty: 1 Rx Instructions: As directed fluticasone propionate [Flonase Allergy Relief] 50 mcg/actuation spray,suspension 1 spray INTRANASAL DAILY Rx Instructions: administer into each nostril baclofen 10 MG tablet 10 mg PO QID PRN (Reason: Muscle Spasm) Referrals Follow up/Referrals: Andres Obrien MD [Primary Care Provider] - See instructions Clinical Impressions Clinical Impression: Atypical chest pain Instructions Patient Instructions: DI for Atypical Chest Pain Discharge ED Provider: Devin (ED),Galileo Garces Chest Pain HPI General Chief Complaint: Chest Pain Stated Complaint: cp Time Seen by Provider: 06/10/22 22:51 Mode of Arrival: Family Vehicle Source of Information: Patient and Medical Record Limitations: No Limitations Description of Symptoms (Recalled from ER Triage Doc. by RN): 31 yo female presents with chest pain that has been ongoing since last night. She elaborated that it woke her out of her sleep last night and felt like a cramping vise was gripping her heart and releasing it. Denies radiation. Denies n/v. Denies dyspnea. Reports nothing improves or worsens pain. State past med history of hyperlipidemia and depression. No recent med changes or missed meds. States her mom and aunt both had blood clots so I'm afraid I have them too . History of Present Illness HPI narrative: lt ant chest pain since last pm and at times worse with insp - no fever/rash or trauma and no recent viral illness MD complaint: chest pain indicative of cardiac Onset (ago): hour(s) Duration: constant Activity at onset: during rest Pain location: left chest Severity: moderate Quality: dull Pain radiation: none Risk Factors for CAD: Family Hx of CAD Treatments prior to or on arrival for Cardiac Chest Pain: none RAMONE Score for Non-Stemi Age of Patient: 30-39 years old Heart Rate: 70-89 bpm Systolic Blood Pressure: 100-119 mmHg Serum Creatinine: 0.40-0.79 mg/dl CHF [place] Class: I-No CHF Other Risk Factors: None Non-Stemi Risk Score: 64 Risk Stratification: 1-108 = Low Risk Related Data On Oral Contraceptives: No Home Medications Medication Instructions Recorded Confirmed cetirizine 10 mg tablet 10 mg PO DAILY Allergy symptoms 30 07/06/17 06/10/22 days ##30 omeprazole 40 mg capsule,delayed 40 mg PO DAILY GERD 30 days ##30 07/06/17 06/10/22 release paroxetine HCl 40 mg tablet 40 mg PO DAILY mood 06/22/19 06/10/22 baclofen 10 mg tablet 10 mg PO QID PRN Muscle Spasm 07/27/20 06/10/22 inhalat.spacing dev,large mask #1 ea 02/13/21 06/10/22 ([facility] with Large Mask) fluticasone propionate 50 1 spray intranasal DAILY allergies 06/10/22 06/10/22 mcg/actuation nasal spray,suspension (Flonase Allergy Relief) Allergies Allergy/AdvReac Type Severity Reaction Status Date / Time doxycycline [DOXYCYCLINE] Allergy Unknown UNKNOWN Verified 02/13/21 15:26 naproxen [From NAPROSYN] Allergy Unknown DIFFICULTY Verified 02/13/21 15:26 [address] [facility] Disclaimer: The information contained in this section may have been updated after the patient was seen, as this information can be updated by other users. Social History Smoking Status: Current some day smoker tobacco type: cigarettes packs per day: 2 alcohol intake: never substance use type: denies use current occupational status: employed Travel in the last 8 weeks: [place] the [place] household members: family housing: house
[2022-06-10 23:43] VITALS: BP 109/68; PULSE 92; RESP 15; TEMP 36.6; O2SAT 96
== END 2022-06-10 23:48 | disposition home or self-care (01) ==
PROVIDERS: Emergency Provider Emergency Medicine; PCP Internal Medicine Adolescent Medicine
DX: R07.89 Other chest pain (principal); F17.210 Nicotine dependence, cigarettes, uncomplicated
CPT/HCPCS: 71046; 71275; 80048; 84484; 85025; 93005; 99285; Q9967

== ENCOUNTER 2022-07-23 16:21 | Emergency (ER) | payer MEDICAID, SELFPAY ==
[2022-07-23 16:30] VITALS: BP 130/73; PULSE 81; RESP 17; O2SAT 100
[2022-07-23 16:32] VITALS: BP 131/80; PULSE 97; RESP 20; TEMP 36.7; O2SAT 98; BMI 26.6
--- NOTE | 2022-07-23 16:52 | HMH.EDGENADL ---
Discharge Plan Disposition Patient Disposition: Home, Self-Care Condition: Good Prescriptions Prescriptions: No Action omeprazole 40 mg capsule,delayed release(DR/EC) 40 mg PO DAILY 30 Days Qty: 30 Label Comments: cetirizine 10 mg tablet 10 mg PO DAILY 30 Days Qty: 30 Label Comments: paroxetine HCl 40 mg tablet 40 mg PO DAILY (DME) OptiChamber Sharmila Lg Mask Spacer See Rx Instructions .ROUTE .MEDSUPPLY Qty: 1 Rx Instructions: As directed fluticasone propionate [Flonase Allergy Relief] 50 mcg/actuation spray,suspension 1 spray INTRANASAL DAILY Rx Instructions: administer into each nostril baclofen 10 MG tablet 10 mg PO QID PRN (Reason: Muscle Spasm) Referrals Follow up/Referrals: Andres Obrien MD [Primary Care Provider] - See instructions Activity Restrictions/Add. Instructions Additional Instructions/Restrictions: Your motor and sensory exam of the left upper extremity is subjectively normal on your evaluation today. We discussed the risks and benefits of CT scans and lab test in the emergency department and a low yield of such test with your normal exam. With shared decision making we decided to not do any emergency testing at the moment, to observe symptoms, and to return with any worsening of your symptoms. Please follow with a primary care doctor return to the emergency department with any worsening symptoms Clinical Impressions Clinical Impression: Cervical radiculopathy Stand Alone Forms Stand Alone Forms: Work/School Release Discharge ED Provider: Jonatan Walsh General Adult HPI General Chief complaint: Neuro Symptoms/Deficit Stated complaint: Numbness in left arm and side of face Time Seen by Provider: 07/23/22 16:52 Mode of Arrival: Ambulatory Source of Information: Patient Limitations: No Limitations Description of Symptoms (Recalled from ER Triage Doc. by RN): pt to ed c/o left arm numbness/tingling. pt states at approx 1100 she started having pain in her left wrist and gradually radiated into her arm and shoulder. pt states she has hx of anxiety. pt states she has had episodes of confusion today. History of Present Illness HPI narrative: Patient is a 31-year-old female presenting with left upper extremity numbness . She states this has been going on for the past several hours no injuries that she is aware of no significant neck pain no mechanism of injury she also states she had a little bit of paresthesias on the left side of her face. No motor weakness or any other neurologic symptoms. She has no history of any cardiovascular risk factors no family history of any clotting or any abnormal genetic disorders. Patient states the mid forearm of her left arm has been cramping up in addition to what her symptoms are. Related Data Home Medications Medication Instructions Recorded Confirmed cetirizine 10 mg tablet 10 mg PO DAILY Allergy symptoms 30 07/06/17 06/10/22 days ##30 omeprazole 40 mg capsule,delayed 40 mg PO DAILY GERD 30 days ##30 07/06/17 06/10/22 release paroxetine HCl 40 mg tablet 40 mg PO DAILY mood 06/22/19 06/10/22 baclofen 10 mg tablet 10 mg PO QID PRN Muscle Spasm 07/27/20 06/10/22 inhalat.spacing dev,large mask #1 ea 02/13/21 06/10/22 ([facility] with Large Mask) fluticasone propionate 50 1 spray intranasal DAILY allergies 06/10/22 06/10/22 mcg/actuation nasal spray,suspension (Flonase Allergy Relief) Allergies Allergy/AdvReac Type Severity Reaction Status Date / Time doxycycline [DOXYCYCLINE] Allergy Unknown UNKNOWN Verified 02/13/21 15:26 naproxen [From NAPROSYN] Allergy Unknown DIFFICULTY Verified 02/13/21 15:26 BREATHING [facility] Disclaimer: The information contained in this section may have been updated after the patient was seen, as this information can be updated by other users. Social History Smoking Status: Current every day smoker tobacco typ
[2022-07-23 17:00] VITALS: BP 131/75; PULSE 91; RESP 17; O2SAT 99
[2022-07-23 17:25] VITALS: BP 131/75; PULSE 90; RESP 17; TEMP 36.7; O2SAT 99
== END 2022-07-23 17:28 | disposition home or self-care (01) ==
PROVIDERS: Emergency Provider Student in an Organized Health Care Education/Training Program; PCP Internal Medicine Adolescent Medicine
DX: M54.12 Radiculopathy, cervical region (principal); R41.0 Disorientation, unspecified; F17.210 Nicotine dependence, cigarettes, uncomplicated
CPT/HCPCS: 99282; 99283

== ENCOUNTER 2024-06-17 15:07 | Outpatient (CLI) | payer BC, SELFPAY ==
--- NOTE | 2024-06-17 15:12 | XR_ITS ---
FINAL REPORT CLINICAL HISTORY: fall on monday, left sided pain & numbness down arm COMPARISON: None FINDINGS: CERVICAL SPINE 5 views were obtained. There is no acute fracture or malalignment. Vertebrae are normal in height. The disc spaces are preserved. There is loss of the cervical lordosis. Facet joints are properly aligned. No significant degenerative changes are present. IMPRESSION: No acute bony abnormality. Reviewed, Interpreted and Dictated by El Javier MD Transcribed by Tia Aguirre Authenticated and [facility]
--- NOTE | 2024-06-17 15:12 | XR_ITS ---
FINAL REPORT TECHNIQUE: Chest PA & Lateral CLINICAL HISTORY: PAIN from fall on monday, left sided rib pain COMPARISON: 07/26/2020 FINDINGS: 2 views of the chest were performed. The heart size is normal. The mediastinum is within normal limits. There is no acute cardiopulmonary process. There are no pleural effusions. There is no pneumothorax. There is orthopedic hardware securing L1 through L3. IMPRESSION: No acute cardiopulmonary process. Reviewed, Interpreted and Dictated by El Javier MD Transcribed by Tia Aguirre Authenticated and [facility]
[2024-06-17 15:58] LABS: Basophils # 0.1 K/mm3 (0-0.2); Basophils % 0.5 % (0.1-2.0); Eosinophils # 0.4 K/mm3 (0.0-0.4); Eosinophils % 2.7 % (0.1-12.0); Hematocrit 36.8 % (37.0-47.0); Hemoglobin 12.4 g/dL (12.2-16.2); Lymphocytes # 4.5 K/mm3 (0.7-4.5); Lymphocytes % 30.7 % (10-50); Mean Corpuscular HGB Conc 33.7 g/dL (31.8-35.4); Mean Corpuscular Hemoglobin 30.3 pg (27.0-31.2); Monocytes # 0.8 K/mm3 (0.1-1.0); Monocytes % 5.3 % (1.7-9.3); Neutrophils % 60.5 % (37.0-80.0); Platelet Count 332 K/mm3 (142-424); Red Blood Count 4.09 M/mm3 (4.20-5.40); Red Cell Distribution Width 15.3 % (11.5-17.5); White Blood Count 14.8 K/mm3 (4.8-10.8)
[2024-06-17 17:49] LABS: Thyroid Stimulating Hormone 2.53 uIU/mL (0.465-4.68)
[2024-06-17 18:03] LABS: Albumin Level 4.5 g/dl (3.5-5.0); Chloride 112 mmol/L (98-107); Sodium 141 mmol/L (136-145)
[2024-06-17 18:04] LABS: Potassium 4.2 mmoL/L (3.5-5.1)
[2024-06-17 18:06] LABS: Alanine Aminotransferase 24 U/L (12-78); Alkaline Phosphatase 72 U/L (38-126); Anion Gap 11.2 mEq/L (5-15); Aspartate Amino Transferase 34 U/L (14-36); Bilirubin,Total 0.5 mg/dl (0.2-1.3); Blood Urea Nitrogen 15 mg/dl (7-17); Carbon Dioxide 22 mmol/L (22.0-30.0); Estimated Glomerular Filt Rate 96 ml/min (>60); GFR (African American) 117 ML/MIN (>60); Globulin 2.3 g/dL (1.3-3.2); Total Protein,Serum 6.8 g/dl (6.3-8.2)
[2024-06-17 18:07] LABS: Calcium 9.6 mg/dl (8.4-10.2); Glucose 88 mg/dl (74-100)
== END 2024-06-17 23:59 | disposition home or self-care (01) ==
LOC: RAD 15:10
PROVIDERS: PCP Internal Medicine Adolescent Medicine; Visit Provider Nurse Practitioner Family
DX: R55 Syncope and collapse (principal); G89.11 Acute pain due to trauma; R07.89 Other chest pain; M79.2 Neuralgia and neuritis, unspecified
CPT/HCPCS: 36415; 71046; 72050; 80053; 84443; 85025

== ENCOUNTER 2024-09-06 16:45 | Emergency (ER) | payer BC, SELFPAY ==
[2024-09-06] VITALS (7 sets, daily range): BP systolic 100–139; BP diastolic 61–89; PULSE 72–94; RESP 16; TEMP 36.6–36.9; O2SAT 98–100; BMI 26.1
--- NOTE | 2024-09-06 16:51 | ECG_ITS ---
APPROVED REPORT Exam: Resting ECG HR:99 bpm ECG Measurements Heart Rate 99 AXES IL 136 P 20 QRSd 77 QRS 31 QT 331 T 6 QTc 388 Conclusion SINUS RHYTHM NORMAL ECG No STEMI Electronically signed by : ALEX CASTRO, 09/07/2024 00:26:05
--- NOTE | 2024-09-06 16:57 | XR_ITS ---
PROCEDURE INFORMATION: Exam: XR Chest Exam date and time: 09/06/2024 5:15 PM Age: 33 years old Clinical indication: Pain; Chest pressure; Additional info: Chest pain TECHNIQUE: Imaging protocol: Radiologic exam of the chest. Views: 1 view. COMPARISON: CR XR CHEST 2V 01/10/2025 15:13 FINDINGS: Lungs: Unremarkable. No consolidation. Pleural spaces: Unremarkable. No pleural effusion. No pneumothorax. Heart/Mediastinum: Unremarkable. No cardiomegaly. Bones/joints: Postsurgical changes of the thoracolumbar spine. IMPRESSION: No acute findings.
--- NOTE | 2024-09-06 17:09 | ED_ITS ---
<Statement entered by Yari Cates DO - 09/06/24 22:14> I was consulted by the [facility], and we discussed the complexity of the problems being addressed. I approved the treatment and management plan for this patient's care in the emergency department, thus performing a substantive portion of the medical decision making. Yari Cates DO Discharge Plan Disposition Patient Disposition: Home, Self-Care Prescriptions Prescriptions: No Action omeprazole 40 mg capsule,delayed release(DR/EC) 40 mg PO DAILY 30 Days Qty: 30 Patient Comments: cetirizine 10 mg tablet 10 mg PO DAILY 30 Days Qty: 30 Patient Comments: paroxetine HCl 40 mg tablet 40 mg PO DAILY (DME) OptiChamber Sharmila Lg Mask Spacer See Rx Instructions .ROUTE .MEDSUPPLY Qty: 1 Rx Instructions: As directed fluticasone propionate [Flonase Allergy Relief] 50 mcg/actuation spray,suspension 1 spray INTRANASAL DAILY Rx Instructions: administer into each nostril baclofen 10 MG tablet 10 mg PO QID PRN (Reason: Muscle Spasm) Referrals Follow up/Referrals: Andres Obrien MD [Primary Care Provider, Internal Medicine] - See instructions Activity Restrictions/Add. Instructions Additional Instructions/Restrictions: You are seen in the emergency department tonight with complaints of chest pain. Please follow-up with your primary care provider in the next 1 to 2 weeks, sooner if needed. Your white blood cells were slightly elevated today, this appears to be a chronic finding for you. Okay to return to normal activity and normal diet when you go home. Should your condition worsen or should you experience any worsening chest pain or shortness of breath, please return to the ER for further evaluation. Clinical Impressions Clinical Impression: Atypical chest pain Print Language Print Language: Stateless Discharge ED Provider: Yari Cates General Adult HPI <Tashia Gibbons, ACID PURIFICATION EQUIPMENT OPERATOR - Last Filed: 09/06/24 20:42> General Chief complaint: Chest Pain Stated complaint: chest Pains for the last 2 wks Time Seen by Provider: 09/06/24 16:52 History of Present Illness HPI narrative: Acacia Jacobson is a 33-year-old female who presents emergency room tonight with complaints of chest pain. Patient states she has had chest pain for the last week or 2. Reports it is left-sided just under her left breast. States it is worse with inspiration. Reports some occasional shortness of breath with this. No diaphoresis, no dizziness, lightheadedness. Reports occasional nausea but no vomiting. No diarrhea noted. Reports no fever, no productive cough. No known sick contacts. Does not take any blood thinners. No family history of cardiac disease, no family history of sudden cardiac . Patient smokes about a pack cigarettes per day. Had a tubal many years ago, has not had a period and reports no chance of her being . Is not taking any oral contraceptives. Does not take any blood thinners. No other complaints at this time. Please note that the above description of symptoms, and this electronic medical record under categorization of recalled from ER triage doctor by RN are reflective of an initial nursing assessment, however, is not reflective of my full history and physical exam that was personally taken and clarified. Consequentially, this proceeding description of symptoms, which may include the patient's cauterized chief complaint in the EMR, do not reflect my personal clinical impression, and the ultimate description of the history of present illness stated complaints should be deferred to this section of this note. Unless stated otherwise were congruent with the section of the note, additional signs, symptoms, or incongruence can be interpreted as in or accurate with my clinical impression. Related Data Home Medications ?Medication ?Instructions ?Recorded ?Confirmed cetirizine 10 mg tablet 10 mg PO DAILY Allergy sympt oms 30 07/06/17 06/10/22 days ##30 omeprazole 40 mg capsule,delayed 40 mg PO DAILY GERD 3 0 days ##30 07/06/17 06/10/22 release paroxetine HCl 40 mg tablet 40 mg PO DAILY mood 06/10/22 baclofen 10 mg tablet 10 mg PO QID PRN Muscle Spas m 07/27/20 06/10/22 inhalat.spacing dev,large mask #1 ea 02/13/21 06/10/22 ([facility] with Large Mask) fluticasone propionate 50 1 spray intranasal DAILY all ergies 06/10/22 06/10/22 mcg/actuation nasal spray,suspension (Flonase Allergy Relief) Allergies Allergy/AdvReac Type Severity Reaction Status Date / Time doxycycline (DOXYCYCLINE) Allergy Unknown UNKNOWN Verified 02/13/21 15:26 naproxen (From NAPROSYN) Allergy Unknown DIFFICULTY Verified 02/13/21 15:26 BREATHING PFSH <Tashia Yund, ACID PURIFICATION EQUIPMENT OPERATOR - Last Filed: 09/06/24 20:42> [facility] Disclaimer: The information contained in this section may have been updated after the patient was seen, as this information can be updated by other users. Social History Smoking Status: Current every day smoker tobacco type: cigarettes packs per day: 2 alcohol intake: never substance use type: denies use current occupational status: employed Travel in the last 8 weeks?: Inside the [place] household members: family housing: house Have you lived/traveled outside [place] in past 30 days?: No Contact w/someone who lives/traveled outside US past 30 days?: No Exposure to someone with infectious disease in past 14 days?: No Do you have a fever (greater than 100.4 F or 38 C)?: No Have you tested positive for COVID-19?: No Exposed to someone with COVID-19 in past 14 days?: No Do you have a sore throat?: No Do you have a cough?: No Do you have any weakness?: No Do you have any diarrhea?: No Are you experiencing any unusual bleeding?: No Do you have any muscle aches/pain?: Yes Do you have any abdominal pain?: No Are you experiencing loss of taste or smell?: No Other Medical History Have you received the Flu Vaccine for this season: No Have you received the Pneumonia Vaccine: No <Tashia Gibbons APRN - Last Filed: 09/06/24 20:42> ROS Obtained: Yes Systems reviewed as appropriate & no additional complaints except as documented Physical Exam <Tashia Gibbons APRN - Last Filed: 09/06/24 20:42> General General appearance: alert and in no apparent distress Head Head exam: atraumatic and normocephalic Eye Eye exam: Present PERRL and EOMI Chest Chest inspection: Present symmetric chest wall rise Respiratory Respiratory exam: Present normal lung sounds bilaterally Cardiovascular Cardiovascular exam: Present regular rate and normal rhythm Abdominal Exam Abdominal exam: Present soft and normal bowel sounds; Absent tenderness Extremities Exam Extremities exam: Present full ROM Neurological Exam Neurological exam: Present alert and oriented X3 Skin Skin exam: Present warm, dry and intact Medical Decision Making <Tashia Gibbons APRN - Last Filed: 09/06/24 20:42> Medical Records Screening: Per USPSTF and CDC recommendations, given the prevalence of disease in our region, it is our hospital?s policy to screen for HIV and viral Hepatitis for all patients aged 18 and over and those with ongoing risk factors. [place] Inquiry Pt receiving controlled substance: No Vital Signs: 09/06/24 17:30 09/06/24 17:53 09/06/24 18:00 Temperature 98.4 F Temperature Source Oral Pulse Rate 94 H 92 H Pulse Rate [Left] 91 H Respiratory Rate 16 Blood Pressure 117/75 106/61 L Blood Pressure [Right Arm] 139/89 Blood Pressure Mean [Right Arm] 105 Blood Pressure Source [Right Arm] Automatic Cuff Blood Pressure Position [Right Arm] Sitting 02 Sat by Pulse Oximetry 100 99 99 Oxygen Delivery Method Room Air Room Air Room Air 09/06/24 18:38 09/06/24 19:00 09/06/24 19:16 Temperature Temperature Source Pulse Rate 85 87 81 Pulse Rate [Left] Respiratory Rate Blood Pressure 123/82 104/64 L 100/65 L Blood Pressure [Right Arm] Blood Pressure Mean [Right Arm] Blood Pressure Source [Right Arm] Blood Pressure Position [Right Arm] 02 Sat by Pulse Oximetry 99 98 98 Oxygen Delivery Method Room Air Lab Data Lab Results 09/06/24 18:25: WBC 15.2 H, RBC 4.08 L, Hgb 11.7 L, Hct 36.5 L, MCV 89.5, MCH 28.7, MCHC 32.1, RDW 14.7, Plt Count 323, MPV 10.7 H, Neut % (Auto) 58.2, Lymph % (Auto) 33.3, [place] % (Auto) 4.5, Eos % (Auto) 3.2, Baso % (Auto) 0.5, Neut # (Auto) 8.8 H, Lymph # (Auto) 5.1 H, [place] # (Auto) 0.7, Eos # (Auto) 0.5 H, Baso # (Auto) 0.1, Total Counted 100, Neutrophils % (Manual) 58, Lymphocytes % (Manual) 36, Monocytes % (Manual) 4, Eosinophils % (Manual) 2, Platelet Estimate Normal, RBC Morphology Normal, D-Dimer 0.96 H, Sodium 140, Potassium 3.3 L, C hloride 109 H, Carbon Dioxide 27, Anion Gap 7.3, BUN 14, Creatinine 0.60, Estimated Creat Clear 155, Estimated GFR 115, Est GFR ( Amer) 139, Glucose 100, Calcium 9.4, Total Bilirubin 0.3, AST 39 H, ALT 25, Alkaline Phosphatase 78, Troponin I < 0.01, Total Protein 7.1, Albumin 4.2, Globulin 2.9, Albumin/Globulin Ratio 1.4, Lipase 65, HCV Ab YVETTE w/Rflx PCR Qn Negative, HIV Ag/Ab Combo Qual Negative 09/06/24 19:21: Urine Color Yellow, Urine Appearance Clear, Urine pH 6.0, Ur Specific [place] >= 1.030, Urine Protein Negative, Urine Glucose (UA) Negative, Urine Ketones Negative, Urine Blood Negative, Urine Nitrate Negative, Urine Bilirubin Negative, Urine Urobilinogen 0.2, Ur Leukocyte Esterase Negative, Urine RBC None, Urine WBC Occasional, Ur Squamous Epith Cells Occasional, Urine Bacteria Trace, Urine Mucus 2+ 09/06/24 18:25 09/06/24 18:25 Orders (Tests/Meds): ED MEDICATIONS Discontinued Medications Generic Name Dose Route Start Last Admin Trade Name Freq PRN Reason Stop Dose Admin Potassium Chloride 40 meq 09/06/24 19:31 09/06/24 19:45 Potassium Chloride 20meq Tab PO 09/06/24 19:32 40 meq ONCE ONE Administration ORDERS Category Date Time Status CXR --portable [XR chest portable] Stat Exams 09/06/24 16:57 Completed CBC w/Auto Diff [Complete Blood Count Auto Diff] Stat Lab 09/06/24 18:25 Completed CMP [Comprehensive Metabolic Panel] Stat Lab 09/06/24 18:25 Completed D-Dimer Stat Lab 09/06/24 18:25 Completed HIV Combo Stat Lab 09/06/24 18:25 Completed Hepatitis C Ab Qual. W/ RFX Stat Lab 09/06/24 18:25 Completed Lipase Stat Lab 09/06/24 18:25 Completed Trop I [Troponin I] Stat Lab 09/06/24 18:25 Completed Troponin I Q3H Lab 09/06/24 20:15 Received Troponin I Q3H Lab 09/06/24 23:00 Ordered UA [Urinalysis and Microscopic] Stat Lab 09/06/24 19:21 Completed Medical Decision Narrative: In summary patient is an 33-year-old female who presents emergency department for evaluation of chest pain for the last week or 2. Patient reports some occasional shortness of breath with this. Chest pain is left-sided chest just inferior to her left breast. Worse with inspiration. Does not radiate anywhere. Endorses occasional nausea, no vomiting, no diarrhea. No known sick contacts. No fever.. Patient is mildly tachycardic with heart rate in the low 100s, otherwise hemodynamically stable upon arrival, afebrile. Nonfocal unremarkable physical exam. Differential diagnosis includes ACS versus PE versus musculoskeletal chest pain. Initial workup will be conducted with hematologic labs, chest x-ray. Initial workup reviewed by me labwork showed an elevated white count of 15,000 which appears to be chronic be elevated for her. Patient tells me that she has had a chronically elevated white count for many years, this is not a new finding. Potassium a bit low at 3.3 which was replaced with p.o. potassium. AST very slightly elevated at 39, she can follow-up outpatient with her primary care for this. Troponin was negative, D-dimer at 0.96. EKG without ST elevation. Patient scored a 0 on the years algorithm which rules out a PE. Patient was sleeping upon reassessment, complains of no chest pain or shortness of breath at this time. Patient not tachycardic. On room air with appropriate SpO2 sats in the upper 90s. Chest x-ray was nonactionable. CTA of the chest was considered, however, patient on room air, initially tachycardic but 20 minutes later in the ER, had a heart rate down to the 80s. Lungs were clear and patient not complaining of any shortness of breath at this time, scored a 0 on the years algorithm, therefore CT of the chest was deferred. Upon repeat evaluation patient continued be asymptomatic, chest pain-free, no shortness of breath, not complaining of any complaints.. Given this patient appropriate for discharge at this time. Patient amenable to the plan. Again, she reiterates that she has a chronically elevated white count and is not concerned about this. She was given strict return precautions to return to the ED should she need to be reevaluated. <Yari Cates, DO - Last Filed: 09/06/24 18:18> Vital Signs: 09/06/24 17:30 09/06/24 17:53 09/06/24 18:00 Temperature 98.4 F Temperature Source Oral Pulse Rate 94 H 92 H Pulse Rate [Left] 91 H Respiratory Rate 16 Blood Pressure 117/75 106/61 L Blood Pressure [Right Arm] 139/89 Blood Pressure Mean [Right Arm] 105 Blood Pressure Source [Right Arm] Automatic Cuff Blood Pressure Position [Right Arm] Sitting 02 Sat by Pulse Oximetry 100 99 99 Oxygen Delivery Method Room Air Room Air Room Air 09/06/24 18:38 09/06/24 19:00 09/06/24 19:16 Temperature Temperature Source Pulse Rate 85 87 81 Pulse Rate [Left] Respiratory Rate Blood Pressure 123/82 104/64 L 100/65 L Blood Pressure [Right Arm] Blood Pressure Mean [Right Arm] Blood Pressure Source [Right Arm] Blood Pressure Position [Right Arm] 02 Sat by Pulse Oximetry 99 98 98 Oxygen Delivery Method Room Air Lab Data Lab Results 09/06/24 18:25: WBC 15.2 H, RBC 4.08 L, Hgb 11.7 L, Hct 36.5 L, MCV 89.5, MCH 28.7, MCHC 32.1, RDW 14.7, Plt Count 323, MPV 10.7 H, Neut % (Auto) 58.2, Lymph % (Auto) 33.3, [place] % (Auto) 4.5, Eos % (Auto) 3.2, Baso % (Auto) 0.5, Neut # (Auto) 8.8 H, Lymph # (Auto) 5.1 H, [place] # (Auto) 0.7, Eos # (Auto) 0.5 H, Baso # (Auto) 0.1, Total Counted 100, Neutrophils % (Manual) 58, Lymphocytes % (Manual) 36, Monocytes % (Manual) 4, Eosinophils % (Manual) 2, Platelet Estimate Normal, RBC Morphology Normal, D-Dimer 0.96 H, Sodium 140, Potassium 3.3 L, C hloride 109 H, Carbon Dioxide 27, Anion Gap 7.3, BUN 14, Creatinine 0.60, Estimated Creat Clear 155, Estimated GFR 115, Est GFR ( Amer) 139, Glucose 100, Calcium 9.4, Total Bilirubin 0.3, AST 39 H, ALT 25, Alkaline Phosphatase 78, Troponin I < 0.01, Total Protein 7.1, Albumin 4.2, Globulin 2.9, Albumin/Globulin Ratio 1.4, Lipase 65, HCV Ab YVETTE w/Rflx PCR Qn Negative, HIV Ag/Ab Combo Qual Negative 09/06/24 19:21: Urine Color Yellow, Urine Appearance Clear, Urine pH 6.0, Ur Specific [place] >= 1.030, Urine Protein Negative, Urine Glucose (UA) Negative, Urine Ketones Negative, Urine Blood Negative, Urine Nitrate Negative, Urine Bilirubin Negative, Urine Urobilinogen 0.2, Ur Leukocyte Esterase Negative, Urine RBC None, Urine WBC Occasional, Ur Squamous Epith Cells Occasional, Urine Bacteria Trace, Urine Mucus 2+ Orders (Tests/Meds): ED MEDICATIONS Discontinued Medications Generic Name Dose Route Start Last Admin Trade Name Freq PRN Reason Stop Dose Admin Potassium Chloride 40 meq 09/06/24 19:31 09/06/24 19:45 Potassium Chloride 20meq Tab PO 09/06/24 19:32 40 meq ONCE ONE Administration ORDERS Category Date Time Status CXR --portable [XR chest portable] Stat Exams 09/06/24 16:57 Completed CBC w/Auto Diff [Complete Blood Count Auto Diff] Stat Lab 09/06/24 18:25 Completed CMP [Comprehensive Metabolic Panel] Stat Lab 09/06/24 18:25 Completed D-Dimer Stat Lab 09/06/24 18:25 Completed HIV Combo Stat Lab 09/06/24 18:25 Completed Hepatitis C Ab Qual. W/ RFX Stat Lab 09/06/24 18:25 Completed Lipase Stat Lab 09/06/24 18:25 Completed Trop I [Troponin I] Stat Lab 09/06/24 18:25 Completed Troponin I Q3H Lab 09/06/24 20:15 Received Troponin I Q3H Lab 09/06/24 23:00 Ordered UA [Urinalysis and Microscopic] Stat Lab 09/06/24 19:21 Completed ECG Data Tracing #1: I reviewed this ECG and interpreted as documented below: Normal sinus rhythm with ventricular rate of [address] changes concerning for STEMI. Normal intervals ECG initial impression date: 09/06/24 ECG initial impression time: 16:53 Critical Care <Tashia Gibbons, ACID PURIFICATION EQUIPMENT OPERATOR - Last Filed: 09/06/24 20:42> Critical Care Time Critical Care Time: No
[2024-09-06 18:37] LABS: Basophils # 0.1 K/mm3 (0-0.2); Basophils % 0.5 % (0.1-2.0); Eosinophils # 0.5 Kmm3 (0.0-0.4); Eosinophils % 3.2 % (0.1-12.0); Hematocrit 36.5 % (37.0-47.0); Hemoglobin 11.7 g/dL (12.2-16.2); Immature Granulocytes # 0.04 10^3uL; Immature Granulocytes % 0.3 %; Lymphocytes # 5.1 K/mm3 (0.7-4.5); Lymphocytes % 33.3 % (10-50); Mean Corpuscular HGB Conc 32.1 g/dL (31.8-35.4); Mean Corpuscular Hemoglobin 28.7 pg (27.0-31.2); Mean Corpuscular Volume 89.5 fl (81-99); Mean Platelet Volume 10.7 fl (7.4-10.4); Monocytes # 0.7 K/mm3 (0.1-1.0); Monocytes % 4.5 % (1.7-9.3); Neutrophils # 8.8 K/mm3 (1.8-7.8); Neutrophils % 58.2 % (37.0-80.0); Nucleated Red Blood Cells # 0 10^3/uL; Nucleated Red Blood Cells % 0 %; Platelet Count 323 K/mm3 (142-424); Red Blood Count 4.08 M/mm3 (4.20-5.40); Red Cell Distribution Width 14.7 % (11.5-17.5); Red Cell Distribution Width-SD 47.8 fL; White Blood Count 15.2 K/mm3 (4.8-10.8)
[2024-09-06 18:43] LABS: MANUAL DIFFERENTIAL MANUAL DIFFERENTIAL (MANUAL DIFF)
[2024-09-06 19:05] LABS: Albumin Level 4.2 g/dl (3.5-5.0); Chloride 109 mmol/L (98-107); Sodium 140 mmol/L (136-145)
[2024-09-06 19:06] LABS: Potassium 3.3 mmoL/L (3.5-5.1)
[2024-09-06 19:07] LABS: Eosinophils % 2 % (0-3); Lymphocytes % 36 % (10-50); Monocytes % 4 % (2-9); Neutrophils % 58 % (42-76); Platelet Estimate Normal; RBC Morphology Normal; Total Cells Counted 100
[2024-09-06 19:08] LABS: Alanine Aminotransferase 25 U/L (12-78); Alkaline Phosphatase 78 U/L (38-126); Anion Gap 7.3 mEq/L (5-15); Aspartate Amino Transferase 39 U/L (14-36); Bilirubin,Total 0.3 mg/dl (0.2-1.3); Blood Urea Nitrogen 14 mg/dl (7-17); Carbon Dioxide 27 mmol/L (22.0-30.0); Creatinine Clearance Estimated 155 mL/min (50-200); Estimated Glomerular Filt Rate 115 ml/min (>60); GFR (African American) 139 ML/MIN (>60)
[2024-09-06 19:09] LABS: Albumin/Globulin Ratio 1.4 (1.1-1.8); Calcium 9.4 mg/dl (8.4-10.2); Globulin 2.9 g/dL (1.3-3.2); Glucose 100 mg/dl (74-100); Lipase 65 U/L (23-300); Total Protein,Serum 7.1 g/dl (6.3-8.2)
[2024-09-06 19:22] LABS: Troponin I < 0.01 ng/ml (0.00-0.034)
[2024-09-06 19:28] LABS: Microscopic, Urine URINE MICROSCOPIC (MICROSCOPIC)
[2024-09-06] MEDS: POTASSIUM CHLORIDE 20MEQ TAB 40 MEQ PO (19:45)
[2024-09-06 19:53] LABS: Appearance,Urine CLEAR (Clear); Bilirubin,Urine Negative (Negative); Blood, Urine Negative (Negative); Color,Urine YELLOW (Yellow); Glucose,Urine (UA) Negative (Negative); Ketones,Urine Negative (Negative); Leukocyte Esterase,Urine Negative (Negative); Nitrate,Urine Negative (Negative); Protein,Urine Negative (Negative); Specific Gravity, Urine >= 1.030 (1.005-1.030); Urobilinogen,Urine 0.2 EU/dl (0.2)
[2024-09-06 19:56] LABS: HIV Combo NEGATIVE (Negative)
[2024-09-06 20:04] LABS: Hepatitis C Ab Qual. W/ RFX NEGATIVE (Negative)
[2024-09-06 20:15] LABS: Bacteria,Urine Trace /lpf; Mucus,Urine 2+ /lpf; Squamous Epithelial Cell,Urine Occasional #/hpf (0-5); WBC,Urine Occasional #/hpf (0-3)
[2024-09-06 20:21] LABS: D-Dimer 0.96 ug/mL (0.0-0.5)
[2024-09-06 20:50] LABS: Troponin I < 0.01 ng/ml (0.00-0.034)
== END 2024-09-06 20:43 | disposition home or self-care (01) ==
PROVIDERS: Nurse Practitioner Acute Care; Emergency Provider Emergency Medicine; PCP Internal Medicine Adolescent Medicine
DX: R07.89 Other chest pain (principal); R06.02 Shortness of breath; R11.0 Nausea; F17.210 Nicotine dependence, cigarettes, uncomplicated; Z11.59 Encounter for screening for other viral diseases; Z11.4 Encounter for screening for human immunodeficiency virus [HIV]
CPT/HCPCS: 71045; 80053; 81001; 83690; 84484; 85007; 85025; 85027; 85378; 86803; 87389; 93005; 99284